=== PATIENT | male | born 1940 | race Hispanic/Latino ===

== ENCOUNTER 2016-12-10 06:13 | Day surgery (SDC) | payer MEDICARE ==
--- NOTE | 2016-12-07 08:04 | Admit Criteria Form ---
Admission Criteria Documentation: AMBULATORY SURGERY EXCEPTION CRITERIA Ambulatory Surgery Exception Criteria ( Place 'X' for any and all applicable criteria): Surgery or procedure performed on ambulatory basis may require inpatient stay for[A] ANY ONE of the following(1)(2)(3)(4)(5)(6)(7)(8)(9): [X] I. A preoperative situation, condition, or finding that warrants inpatient stay as indicated by ANY ONE of the following: [] a) Inpatient care needed because of severity of a disease or condition rather than the surgery (eg, severe cardiac or respiratory disease, severe infection) (15) (16 ) (17) (18) [] b) Emergent procedure (eg, angioplasty for acute ischemia)(19) [] c) Complex surgical approach or situation as indicated by ANY ONE of the following(3): [] i) Open approach needed instead of usual endoscopic, transcatheter, or other less invasive procedure [] ii) Difficult approach because of previous operation [] iii) Airway monitoring required after open neck procedures(20)(21) [] iv) Large mass requiring unusually extensive dissection [] v) Additional complicating feature requiring inpatient care (eg, drain management)(22(23): [X] d) Major surgery in a pt with high anesthetic risk as indicated by ANY ONE of the following (2)(3)(5)(7)(8): [X] i) ASA risk class III or higher (severe systemic disease impairing function) [D] [] ii) Advanced age (eg, older than 85 years)(14)(24) [] iii) Symptomatic heart failure(25) [] iv) Symptomatic asthma or COPD(8)(21) [] v) Morbid obesity with hemodynamic or respiratory problems(20)( 21)(26)(27) [] vi) Obstructive sleep apnea(20)(21) [] vii) Former premature infants who are younger than 60 weeks [] viii) High risk for severe postoperative abnormalities (eg, severe postoperative hypocalcemia after parathyroidectomy for severe hyperparathyroidism)(27)( 28) [] ix) Unstable angina(25) [] e) Drug-related risk requiring inpatient stay as indicated by ANY ONE of the following(5)(10)(14)(32)(33) [] i) Procedure requires discontinuing drugs or other therapy (eg , antiarrhythmic medication, antiseizure medication), which necessitates inpatient observation or treatment.(18)(31) [] ii) Major surgery and high risk drug use as indicated by ANY ONE of the following: [] 1) Active abuse of cocaine or similar drug [] 2) Monoamine oxidase inhibitor use [] 3) Other drug identified as posing risk [] f) Inadequate outpatient care situation as indicated by ANY ONE of the following(5)(10)(14)(32)(33) [] i) Patient lives remote from medical facility and procedure has urgent complication potential, and temporary nearby residence cannot be arranged [] ii) Patient will have postprocedure incapacitation and inadequate assistance at home, or alternative level of care cannot be arranged. [] iii) Patient will have long general anesthesia or procedure side effect resolution time, and competent person to stay with patient on first postoperative night at home or alternative level of care cannot be arranged. []iv) Other inadequate outpatient situation that cannot be handled by other means [] II. A perioperative event, condition, or finding that warrants inpatient stay as indicated by ANY ONE of the following (1)(2)(3): [] a) Inadequate physiologic recovery: cardiovascular, respiratory, or hemodynamic status not normal or near preoperative baseline(18) [] b) Hemodynamic instability [] c) Patient not alert with near normal or baseline mental status [] d) Temperature not normal or as expected and not appropriate for outpatient treatment of condition [] e) Ambulatory or appropriate activity level status not yet achieved post procedure [E](34)(35)(36) [] f) Operative site not appropriate (eg, unexpected or excessive drainage or bleeding) [] g) Postoperative effects not resolved or adequately managed (eg, significant pain or vomiting not appropriate for outpatient or next level of care)(10)(12) [] h) Complicating features requiring inpatient care as indicated by ANY ONE of the following(37): [] i) Severe complications of procedure (eg, bowel injury, airway compromise, vascular injury,severe hemorrhage) [] ii) Extensive (eg, dissection far beyond usual scope of procedure ) or prolonged (eg, 120 minutes beyond usual) surgery needed requiring inpatient postoperative care [] iii) Conversion to an open or complex procedure that requires inpatient care (eg, open vs laparoscopic cholecystectomy, abdominal vs vaginal hysterectomy)(38) [] iv) Comorbid condition or test result identified during or post procedure that requires inpatient care (7) [] v) Malignant hyperthermia(30) [] vi) Other complicating feature requiring inpatient care(22)(23) Inpatient stay may be needed until ALL of the following are present (1)(2)(3)(4) (5)(6)(10)(14)(33)(40): []a) Physiologic recovery: cardiovascular, respiratory, and hemodynamic status normal or near preoperative baseline []b) Hemodynamic stability []c) Patient alert, with near normal or baseline mental status []d) Temperature appropriate: patient afebrile or temperature appropriate for outpt treatment of condition []e) Activity level appropriate: ambulatory or appropriate activity level post procedure []f) Operative site appropriate as indicated by ALL of the following: []i) Site dry or with expected drainage []ii) Any blood noted is as expected for procedure. []g) Postoperative effects resolved or managed as indicated by ALL of the following: []i) Pain management appropriate for outpatient (or next level of) care(10) []ii) Minimal nausea and vomiting: if present, successfully treated with oral medication(12) []iii) Headache, dizziness, or drowsiness (if present) are mild. []h) Voiding status acceptable as indicated by ANY ONE of the following: []i) Voiding spontaneously []ii) No voiding but instructions given for follow-up in 6 to 8 hours []iii) Urinary catheter in place, and instructions given for follow-up []i) Complicating features requiring inpatient care manageable at a lower level of care(37) []j) Comorbid conditions manageable at a lower level of care(37) The original [employer] content created by [employer] has been revised. The portions of the content which have been revised are identified through the use of italic text or in bold, and [facility]] [employer] has neither reviewed nor approved the modified material. All other unmodified content is copyright [employer]. Please see references footnoted in the original [employer] edition 2016 Admission Criteria Met: Yes
[2016-12-10] MEDS ORDERED: NACL BACTERIOSTATIC INFILTRATI ONE (06:50)
[2016-12-10] MEDS ORDERED: MARCAINE 0.5% 30 ML INFILTRATI ONE ×2 (07:09→08:40)
[2016-12-10] MEDS ORDERED: SUBLIMAZE IV PRN (07:11)
[2016-12-10] MEDS ORDERED: ZOFRAN IV PRN (07:11)
--- NOTE | 2016-12-10 07:11 | Anesthesia Consultation ---
Anesthesia Consult and Med Hx Date of service: 12/10/16 - Airway Anesthetic Teeth Evaluation: Dentures, Partials ROM Head & Neck: Adequate Mental/Hyoid Distance: Adequate Mallampati Class: Class II Intubation Access Assessment: Probably Good - Pulmonary Exam CTA: Yes (blbs clear) - Cardiac Exam Cardiac Exam: RRR - Pre-Operative Health Status ASA Pre-Surgery Classification: ASA3 Proposed Anesthetic Plan: General - Pulmonary Hx Smoking: Yes (STOPPED 1963-1/2PPD & CIGARS X 8 YRS) Hx Sleep Apnea: No (NANCY PRE SCREEN HIGH RISK) - Cardiovascular System Hx Hypertension: Yes (X 3 YRS) Hx Coronary Artery Disease: Yes Hx Heart Attack/AMI: No (EF 55%) Hx Cardia Arrhythmia: Yes (AF anticoag ) Hx Heart Murmur: Yes - Central Nervous System Hx Psychiatric Problems: No - Gastrointestinal Hx Gastroesophageal Reflux Disease: No - Endocrine Hx Non-Insulin Dependent Diabetes: Yes Hx Thyroid Disease: Yes Hx Hypothyroidism: Yes - Hematic Hx Anemia: No - Other Systems Hx Cancer: No - Additional Comments Anesthesia Medical History Comments: BPH walks 2.5 miles/day
--- NOTE | 2016-12-10 07:11 | Anesthesia Day of Surgery ---
Anesthesia Day of Surgery - Day of Surgery Patient Examined: Yes Patient H&P Reviewed: Yes Patient is NPO: Yes
[2016-12-10] MEDS ORDERED: XYLOCAINE 2% INFILTRATI ONE (07:14)
[2016-12-10] MEDS ORDERED: MARCAINE 0.25% INFILTRATI ONE (07:15)
[2016-12-10 07:35] LABS: INR 1.01 (0.87-1.13)
[2016-12-10] MEDS ORDERED: XYLOCAINE MPF 2% ONE (07:40)
[2016-12-10] MEDS ORDERED: SUBLIMAZE ONE (07:40)
[2016-12-10] MEDS ORDERED: ZEMURON IV ONE (07:40)
[2016-12-10] MEDS ORDERED: DIPRIVAN 10 MG/ML IV ONE (07:41)
[2016-12-10] MEDS ORDERED: PEPCID PO NR (08:00)
[2016-12-10] MEDS ORDERED: NACL 0.9% 1000 ML 1,000 ML IV SCH (08:00)
[2016-12-10] MEDS ORDERED: ANCEF/STERILE WATER 2 GM/20 ML IV NR (09:00)
[2016-12-10] MEDS ORDERED: MARCAINE 0.5% INFILTRATI ONE (09:39)
[2016-12-10] MEDS ORDERED: ROBINUL ONE (09:42)
[2016-12-10] MEDS ORDERED: NEOSTIGMINE ONE ×2 (09:42→09:44)
[2016-12-10] MEDS ORDERED: AMIDATE IV ONE (09:42)
[2016-12-10] MEDS ORDERED: ZOFRAN ONE (09:42)
--- NOTE | 2016-12-10 09:55 | Discharge Summary ---
Short Stay Discharge Plan Activity: no restrictions Diet: regular Wound: open to air, other (ice pack to op site) Follow up with: MARLEN GREGORY MD [Primary Care Provider] - 7 Days SABRINA VAN MD [Staff Physician] - 7 Days
--- NOTE | 2016-12-10 10:06 | Operative Report ---
Operative Report Operative Report: Date of operation: 12/10/2016. Preoperative diagnosis: Recurrent left inguinal hernia. Postoperative diagnosis: Recurrent left inguinal hernia. Operation: Recurrent left inguinal herniorrhaphy. Surgeon: Theodore Ghosh M.D. Findings: 76 years old male with reducible bulge at the left groin. Patient complained of pain. At operation we found a left recurrent sliding left inguinal hernia, with the sigmoid colon being part of the wall of the hernia sac. Procedure: Under a general anesthesia the patient's left groin was prepped and draped in the usual sterile manner. After proper timeout a left groin crease incision was done with a #10 blade. Dissection carried down through subcutaneous tissue and scar tissue and identified a scarred down left oblique fascia. This was opened and the spermatic cord was identified. By blunt dissection the cord was dissected from the canal floor. The sac was identified and dissected from surrounding tissues by blunt and sharp dissection. The sac was opened and we identified the sigmoid colon being part of the wall posteriorly. This was dissected away by sharp dissection using Metzenbaum scissors and electrocautery and returned to the abdominal cavity. After this was done the peritoneum at the internal ring was closed with a pursestring suture of 2-0 silk. Then a [id number] stitch of 2-0 silk was put on top of this pursestring. The sac was twisted and a transfixion suture of 0 silk was used to tie it off and divided distal to the suture. In this manner we obtained a triple closure of the internal ring. After this was done preparations were made to overlay piece of mesh preshaped with keyhole on the inguinal canal floor. This was done by fixing the mesh to the pubic tubercle, ilioinguinal ligament and the fascia off the internal oblique (conjoined tendon ) with multiple stitches of 2-0 PDS. The cord at the internal ring was put in the keyhole of the mesh and the keyhole was completed with a 2-0 Prolene suture. The tails were tucked down on top of the fascia of the internal oblique and fixed at that side with the stitch of 2-0 PDS. After that was done the cord was returned to the canal and the fascia of the external oblique was approximated with a running suture of 2-0 Vicryl. The subcutaneous tissue was approximated with interrupted stitches of 3-0 Vicryl after injecting Marcaine 0.5% in the left inguinal area for postoperative analgesia. We used about 30 mL 's of the solution. The skin edges were then approximated with a running intracuticular suture of 4-0 Monocryl. The wound was dressed with Dermaflex. The patient was awakened, extubated and transferred to the recovery room in good condition. Estimated blood loss: Less than 25 mL. Intravenous fluid replacement: Crystalloids. Condition: Stable. Complications: None.
--- NOTE | 2016-12-10 10:12 | Post Anesthesia Evaluation ---
- Post Anesthesia Evaluation Patient Participated: Yes Airway Patent: Yes Stable Respiratory Function: Yes Temp > 96.8F: Yes Pain Manageable: Yes Adequeate Hydration: Yes Anesthesia Complications: No Block Receding Appropriately: Not Applicable
[2016-12-10] MEDS: DILAUDID IV PRN ×3 (11:05→11:25)
[2016-12-10 14:11] VITALS: BP 108/63
== END 2016-12-10 13:20 | disposition home or self-care (01) ==
LOC: OR 06:13
PROVIDERS: ATTEND Specialist
DX: K40.91 Unilateral inguinal hernia, without obstruction or gangrene, recurrent (principal); I48.91 Unspecified atrial fibrillation; E11.9 Type 2 diabetes mellitus without complications; I10 Essential (primary) hypertension; I25.10 Atherosclerotic heart disease of native coronary artery without angina pectoris; E03.9 Hypothyroidism, unspecified; Z79.01 Long term (current) use of anticoagulants; Z79.84 Long term (current) use of oral hypoglycemic drugs; Z79.899 Other long term (current) drug therapy; Z87.891 Personal history of nicotine dependence; Z98.890 Other specified postprocedural states
CPT/HCPCS: 36415; 49520; 82962; 84132; 85610; 85730; 88302; C1781; J1170; J2405; J2704; J2710; J3010; J7030; 88304